=== PATIENT | female | born 1965 | race Caucasian/White ===

== ENCOUNTER 2016-09-18 13:34 | Observation (INO) | payer BC ==
[~2016-09-18] VITALS: Ht 167.6 cm; Wt 103.6 kg
[2016-09-19] MEDS ORDERED: NORCO 5-325 TA1 EACH PO (13:16)
--- NOTE | 2016-09-22 08:29 | OR ---
ADMIT: 09/18/2016 RM/LOC: 633 [facility] MR#: [id number] [address] [address] ESMER CAMPA [address] [place] [id number] Operative/Delivery Room Report SEX: F AGE: 51 : 1965 SURGERY DATE: 09/18/2016 SURGEON: Chuck Angelo MD PREOPERATIVE DIAGNOSIS: Acute appendicitis. POSTOPERATIVE DIAGNOSIS: Acute appendicitis. PROCEDURE: Laparoscopic appendectomy. ANESTHESIA: General endotracheal. ESTIMATED BLOOD LOSS: 15 mL. DESCRIPTION OF PROCEDURE: The patient was taken to the operating room and placed supine on the operating room table. General anesthesia was established. The abdomen was prepped and draped in the standard surgical fashion. A 5 mm infraumbilical incision was made in the skin. The fascia was grasped with a Kimani clamp, and a Veress needle was advanced into the peritoneal cavity. Carbon dioxide was used to insufflate the abdomen to 15 mmHg pressure. The Veress needle was withdrawn, and a 5 mm Optiview trocar was placed. Next, a right lower quadrant 5 mm port and a 12 mm left upper quadrant port were placed under visualization. The appendix was identified and acutely inflamed, residing in the right upper quadrant near the gallbladder. The mesoappendix was divided with Harmonic Scalpel back to the base of the appendix which was skeletonized. This was divided at the cecum with an [place] 45 mm blue staple load. The appendix was placed in an EndoCatch bag and removed through the left upper quadrant port site. The port was replaced. The right upper quadrant irrigation was performed. The staple line was intact and hemostatic. There was no evidence of bleeding. The ports were then removed under visualization without evidence of bleeding. The fascial margin at the 12 mm port site was approximated with the suture passer and an 0 Vicryl tie. The abdomen was allowed to deflate. Skin edges were approximated with 4-0 Monocryl in a subcuticular fashion and Dermabond. Local anesthetic was injected at the incisions. Sponge, needle, and instrument counts were correct at the end of the case. The patient tolerated the procedure well and transferred to the recovery area in stable condition. Chuck Angelo MD/ sergio JOB #: [id number] CC: Chuck Angelo, Attending Physician Chuck Angelo, Family Physician
--- NOTE | 2016-09-22 08:29 | HP ---
ADMIT: 09/18/2016 RM/LOC: 633 [facility] MR#: [id number] [address] RADHA CAMPA [address] [place] [id number] History and Physical SEX: F AGE: 51 : 1965 DATE OF SERVICE: HISTORY OF PRESENT ILLNESS: This is a 51-year-old female, who complained of right upper quadrant abdominal pain starting at 1:30 this morning. This worsened in severity prompting a visit to the ER in [place]. She was found to have tenderness in the right upper quadrant and underwent a CT scan, after laboratory study showed a white blood cell count of 15,000. CT scan showed evidence of acute appendicitis with the appendix residing in the right upper quadrant near the gallbladder. She subsequently was transferred here for definitive care. She is otherwise without complaint. PAST MEDICAL HISTORY: 1. Hyperlipidemia. 2. Current smoker. PRIOR SURGICAL HISTORY: 1. . 2. Tubal ligation. 3. Tonsillectomy with adenoidectomy. SOCIAL HISTORY: She drinks occasional alcohol and smokes half pack of cigarettes daily. She does drink occasional caffeinated beverage. ALLERGIES: SULFA. HOME MEDICATIONS: Ibuprofen. FAMILY HISTORY: Significant for stroke and coronary artery disease. REVIEW OF SYSTEMS: A 10-point review of systems is performed. The symptoms mentioned in the history of present illness were the only positives. The remainder of the review of systems is negative for recent change. PHYSICAL EXAMINATION: GENERAL: Radha is alert, oriented, and in no acute distress. VITAL SIGNS: She is afebrile currently and her vital signs are stable. HEENT: Cranial nerves are intact. Pupils are equal and reactive. NECK: Supple. Trachea is midline without lymphadenopathy. LUNGS: Clear to auscultation bilaterally. HEART: Regular rate and rhythm without murmur. ABDOMEN: Tender to palpation in the right upper quadrant, correlating to the position of the appendix on CT with rebound and guarding. EXTREMITIES: Calves are soft bilaterally with no clubbing, cyanosis, or ADMIT: 09/18/2016 RM/LOC: 633 [facility] MR#: [id number] [address] [address] RADHA CAMPA [address] [place] [address] History and Physical SEX: F AGE: 51 : 1965 edema. NEUROLOGIC: There are no focal neurologic deficits. LABORATORY AND X-RAY DATA: CT scan is reviewed, which again confirms appendicitis. IMPRESSION: Appendicitis. PLAN: I have recommended proceeding with laparoscopic appendectomy. I discussed the risks of that with Radha including bleeding, infection, damage to intraabdominal organs, and conversion to an open procedure. She understands and does wish to proceed. Chuck Angelo MD/ sergio JOB #: [id number] CC: Chuck Angelo, Attending Physician Chuck Angelo, Family Physician
== END 2016-09-18 17:53 | disposition home or self-care (01) ==
LOC: 6PED 13:34
PROVIDERS: ADMIT Surgery
PROC: 0DTJ4ZZ Resection of Appendix, Percutaneous Endoscopic Approach (ICD-10-PCS; principal; 2016-09-18)
DX: K35.80 Unspecified acute appendicitis (principal); E78.5 Hyperlipidemia, unspecified; F17.210 Nicotine dependence, cigarettes, uncomplicated; E66.9 Obesity, unspecified; Z98.51 Tubal ligation status; Z90.89 Acquired absence of other organs; Z88.2 Allergy status to sulfonamides